=== PATIENT | male | born 1995 | race Caucasian/White ===

== ENCOUNTER 2019-01-20 10:02 | Emergency (ER) | payer SELFPAY ==
[2019-01-20] MEDS ORDERED: IV NORMAL SALINE 1,000ML 1,000 ML IV SCH (10:08)
[2019-01-20 10:24] LABS: BASO # 0.1 x10^3/uL (0.0-0.2); BASO % 1 % (0-3); EOS # 0.2 x10^3/uL (0.0-0.7); EOS % 4 % (0-3); HEMATOCRIT 41.6 % (39.0-53.0); HEMOGLOBIN 14.4 g/dL (13.0-17.5); LYMPH # 2.1 x10^3/uL (1.0-4.8); LYMPH % 39 % (24-48); MEAN CORPUSCULAR HEMOGLOBIN 30 pg (25-35); MEAN CORPUSCULAR HGB CONC 35 g/dL (31-37); MEAN CORPUSCULAR VOLUME 86 fL (79-100); MONO # 0.5 x10^3/uL (0.0-1.1); MONO % 10 % (0-9); NEUT # 2.5 x10^3uL (1.8-7.7); NEUT % 47 % (31-73); PLATELET COUNT 238 x10^3/uL (140-400); RED BLOOD COUNT 4.83 x10^6/uL (4.30-5.70); RED CELL DISTRIBUTION WIDTH 13.8 % (11.5-14.5); WHITE BLOOD COUNT 5.3 x10^3/uL (4.0-11.0)
--- NOTE | 2019-01-20 10:26 | PHYS DOC ---
Adult General Chief Complaint Chief Complaint: medical clearance [facility] HPI Patient is a 23-year-old male who presents via EMS from the correction after patient was released from [facility] for medical clearance in the emergency room. Medics indicate that patient had a short period of unresponsiveness that they question as having been a seizure. They stated that there was no postictal state. Upon arrival, patient indicates that he feels very dehydrated and complains of headache. He states that he had hit his head a couple of days ago and feels like he needs a CAT scan. Patient at this time denies any illicit drug use, stating that he only takes as prescribed medications, although medics state that patient had admitted to them that he had used methamphetamine 2 days ago. Patient also states that he feels like he is very dehydrated and is requesting IV fluids. Review of Systems Review of Systems Constitutional: Denies fever [] Respiratory: Denies cough or shortness of breath [] Cardiovascular: No additional information not addressed in HPI [] GI: Denies abdominal pain, nausea, vomiting or diarrhea [] Integument: Denies rash or skin lesions [] Neurologic: Complains of headache without focal weakness or sensory changes [] All other systems were reviewed and found to be within normal limits, except as documented in this note. Current Medications Current Medications Current Medications Medications (Trade) Dose Ordered Sig/Danielle Start Time Stop Time Status Last Admin Dose Admin Sodium Chloride 1,000 ml @ 1,000 mls/hr Q1H 01/20/19 10:08 01/20/19 11:07 UNV Physical Exam Physical Exam Constitutional: Well developed, well nourished, no acute distress, non-toxic appearance. [] HENT: Normocephalic, atraumatic, bilateral external ears normal, oropharynx dry, no oral exudates, nose normal. [] Eyes: PERRLA, EOMI, conjunctiva normal, no discharge. [] Cardiovascular: Regular rate and rhythm[] Lungs & Thorax: Bilateral breath sounds clear to auscultation [] Abdomen: Bowel sounds normal, soft, no tenderness. [] Skin: Warm, dry, no erythema, no rash. [] Extremities: No tenderness, no cyanosis, no clubbing, ROM intact. [] Neurologic: Alert and oriented 2. Disoriented to place, no focal deficits noted. [] EKG EKG [] Radiology/Procedures Radiology/Procedures [] Course & Med Decision Making Course & Med Decision Making Pertinent Labs and Imaging studies reviewed. (See chart for details) [] Dragon Disclaimer Dragon Disclaimer This electronic medical record was generated, in whole or in part, using a voice recognition dictation system. Departure Departure: Impression: Primary Impression: Polysubstance abuse Additional Impression: Dehydration Disposition: 01 HOME, SELF-CARE Condition: STABLE Patient Instructions: Dehydration, Adult, Drug Abuse, FAQs Problem Qualifiers DANIELLA DUBOIS Jr. DO January 20, 2019 10:26
--- NOTE | 2019-01-20 10:43 | RAD ---
EXAM: Head CT without contrast. HISTORY: Trauma. Seizure. TECHNIQUE: Computed tomographic images of the head were obtained without contrast. *One or more of the following individualized dose reduction techniques were utilized for this examination: 1. Automated exposure control. 2. Adjustment of the mA and/or kV according to patient size. 3. Use of iterative reconstruction technique. COMPARISON: None. FINDINGS: There is no acute or subacute extra-axial or intraparenchymal hemorrhage. There is no mass effect or midline shift. There is no hydrocephalus. The leyva-white matter differentiation pattern is intact. The visualized portions of the orbits, paranasal sinuses and mastoid air cells are unremarkable. No suspicious calvarial lesion is seen. IMPRESSION: No acute intracranial findings. Electronically signed by: Deidre Gibbs MD (01/20/2019 10:40 AM) [facility]
[2019-01-20 10:51] LABS: ALBUMIN 4.1 g/dL (3.4-5.0); CALCIUM 9.1 mg/dL (8.5-10.1); CREATININE 1.1 mg/dL (0.7-1.3); DIRECT BILIRUBIN 0.1 mg/dL (0.0-0.2); GFR 82.2; MAGNESIUM 2.3 mg/dL (1.8-2.4); POTASSIUM 3.8 mmol/L (3.5-5.1); TOTAL BILIRUBIN 0.7 mg/dL (0.2-1.0); TOTAL PROTEIN 7.5 g/dL (6.4-8.2)
[2019-01-20 10:52] LABS: ACETAMIN < 2.0 mcg/mL (10-30); ETHANOL < 10 mg/dL (0-10); SALIC 2.4 mg/dL (2.8-20.0)
[2019-01-20 11:26] LABS: AMPHETAMINE/METHAMPHETAMINE POS (NEG); BARBITURATES NEG (NEG); BENZODIAZEPINES POS (NEG); CANNABINOIDS POS (NEG); COCAINE NEG (NEG); METHADONE NEG (NEG); OPIATES NEG (NEG); PHENCYCLIDINE NEG (NEG)
[2019-01-20 11:32] LABS: BACTERIA,URINE FEW /HPF (0-FEW); BILIRUBIN,URINE NEG (NEG); CLARITY,URINE CLEAR; COLOR,URINE AMBER; GLUCOSE,URINE NEG (NEG); NITRITE,URINE POS (NEG); UROBILINOGEN,URINE 1 mg/dL (0.2 mg/dL); WBC,URINE RARE /HPF (0-4)
[2019-01-20 11:33] VITALS: BP 122/75
[2019-01-20 11:33] LABS: SQUAMOUS EPITHELIAL CELL,UR OCC /LPF
== END 2019-01-20 12:45 | disposition home or self-care (01) ==
LOC: ER 10:02
DX: E86.0 Dehydration (principal); R51 Headache; F15.10 Other stimulant abuse, uncomplicated
CPT/HCPCS: 36415; 70450; 80048; 80076; 80307; 80329; 81001; 83605; 83735; 85025; 87086; 99285; G0480; 82003